=== PATIENT | male | born 1970 | race Caucasian/White ===

== ENCOUNTER 2022-07-03 07:48 | Inpatient (IN) | payer BC, OTHER, SELFPAY ==
[2022-07-03] MEDS ORDERED: hydrALAZINE 20 MG/ML VIAL SLOW IVP PRN (10:35)
[2022-07-03] MEDS ORDERED: Dextrose 5% in Water 1,000 ML IV PRN (10:35)
[2022-07-03] MEDS ORDERED: Promethazine HCl 25 MG/ML VIAL IM PRN (10:35)
[2022-07-03] MEDS ORDERED: Dextrose 50% Abboject 50 ML SYRINGE SLOW IVP PRN (10:35)
[2022-07-03] MEDS ORDERED: Ipratropium/Albuterol 3 ML NEB NEB PRN (10:35)
[2022-07-03 10:54] VITALS: BMI 30.2
[2022-07-03] MEDS: traMADol HCl 50 MG TAB PO PRN ×2 (12:35→20:28)
[2022-07-03] MEDS: D5 1/2 NS w/20 mEq KCL 1,000 ML IV SCH ×3 (12:35→22:30)
[2022-07-03] MEDS ORDERED: Piperacillin/Tazobactam 3.375 GM in Sodium Chloride 0.9% 100 ML IVPB SCH (14:00)
[2022-07-03] MEDS: Acetaminophen 325 MG TAB PO PRN ×2 (14:59→20:27)
[2022-07-03] MEDS: Ondansetron PF 4 MG/2 ML Vial IVP PRN (15:03)
[2022-07-03] MEDS: Famotidine 20 MG TAB PO SCH (20:21)
[2022-07-03] MEDS: Famotidine/PF 20 mg/2ml Vial SLOW IVP SCH (22:31)
[2022-07-04] MEDS: Acetaminophen 325 MG TAB PO PRN (06:00)
[2022-07-04] MEDS: D5 1/2 NS w/20 mEq KCL 1,000 ML IV SCH ×3 (06:02→22:46)
[2022-07-04 06:07] LABS: #Eosinphils 0.2 thou/uL (0.0-0.7); #Lymphocytes 1.4 thou/uL (1.20-3.40); #Monocytes 0.8 thou/uL (0.11-0.59); %Basophils 0.2 % (0.0-1.0); %Eosinophils 2.6 % (0.0-10.0); %Lymphocytes 17.2 % (21.0-51.0); Hemoglobin 14.3 g/dL (14.0-18.0); Mean Corpuscular HGB CONC 34.8 g/dL (32.0-36.0); Mean Corpuscular Hemoglobin 31.4 pg (27.0-31.0); Mean Corpuscular Volume 90.3 fl (78.0-98.0); Mean Platelet Volume 7.5 fL (7.4-10.4); Platelet Count 194 10x3/uL (130-400); RBC Distribution Width 11.8 % (11.5-14.5); Red Blood Cell (RBC) Count 4.54 mill/uL (4.70-6.10); White Blood Cell (WBC) Count 8.4 10x3/uL (4.8-10.8)
[2022-07-04 06:26] LABS: Anion Gap 9 mmol/L (10-20); BUN (Urea Nitrogen) 5 mg/dL (8.4-25.7); Calc. Creatinine Clearance 124 mL/min (70-130); Calcium 8.2 mg/dL (7.8-10.44); Carbon Dioxide 27 mmol/L (22-29); Chloride 106 mmol/L (98-107); Estimated GFR 104; Glucose 128 mg/dL (70-105); Potassium 3.9 mmol/L (3.5-5.1); Sodium 138 mmol/L (136-145)
[2022-07-04] MEDS: Famotidine 20 MG TAB PO SCH ×2 (08:53→21:02)
[2022-07-04] MEDS: Famotidine/PF 20 mg/2ml Vial SLOW IVP SCH ×2 (08:55→21:02)
[2022-07-04] MEDS: traMADol HCl 50 MG TAB PO PRN (11:40)
[2022-07-04] MEDS: Ondansetron PF 4 MG/2 ML Vial IVP PRN ×2 (11:43→18:38)
[2022-07-04] MEDS: Piperacillin/Tazobactam 3.375 GM in Sodium Chloride 0.9% 100 ML IVPB SCH ×2 (13:51→21:02)
[2022-07-04] MEDS: Morphine 4 MG/ML VIAL SLOW IVP PRN (21:06)
[2022-07-05] MEDS: Acetaminophen 325 MG TAB PO PRN ×2 (01:23→13:15)
[2022-07-05] MEDS: Morphine 4 MG/ML VIAL SLOW IVP PRN (04:11)
[2022-07-05] MEDS: Ondansetron PF 4 MG/2 ML Vial IVP PRN ×2 (04:14→13:12)
[2022-07-05] MEDS: Piperacillin/Tazobactam 3.375 GM in Sodium Chloride 0.9% 100 ML IVPB SCH ×3 (05:41→21:24)
[2022-07-05 07:42] LABS: #Eosinphils 0.3 thou/uL (0.0-0.7); #Lymphocytes 1.6 thou/uL (1.20-3.40); #Monocytes 0.5 thou/uL (0.11-0.59); #Neutrophils 5.5 thou/uL (1.40-6.50); %Basophils 0.6 % (0.0-1.0); %Eosinophils 3.9 % (0.0-10.0); %Lymphocytes 19.8 % (21.0-51.0); %Monocytes 6.7 % (0.0-10.0); %Neutrophils 69.1 % (42.0-75.0); Hemoglobin 14.6 g/dL (14.0-18.0); Mean Corpuscular HGB CONC 33.8 g/dL (32.0-36.0); Mean Corpuscular Hemoglobin 30.4 pg (27.0-31.0); Mean Corpuscular Volume 90.1 fl (78.0-98.0); Mean Platelet Volume 7.5 fL (7.4-10.4); Platelet Count 213 10x3/uL (130-400); RBC Distribution Width 11.8 % (11.5-14.5)
[2022-07-05 07:49] LABS: Anion Gap 12 mmol/L (10-20); BUN (Urea Nitrogen) 4 mg/dL (8.4-25.7); Calc. Creatinine Clearance 126 mL/min (70-130); Calcium 8.3 mg/dL (7.8-10.44); Carbon Dioxide 21 mmol/L (22-29); Chloride 108 mmol/L (98-107); Estimated GFR 105; Glucose 94 mg/dL (70-105); Sodium 137 mmol/L (136-145)
[2022-07-05] MEDS: Famotidine 20 MG TAB PO SCH ×2 (09:06→21:25)
[2022-07-05] MEDS: D5 1/2 NS w/20 mEq KCL 1,000 ML IV SCH ×2 (09:08→17:18)
[2022-07-05] MEDS: Famotidine/PF 20 mg/2ml Vial SLOW IVP SCH ×2 (09:08→21:25)
[2022-07-05] MEDS ORDERED: Iopamidol-370 76% 500 ML 1 ML ONE (13:23)
[2022-07-05] MEDS: Melatonin 3 MG TAB PO PRN (22:02)
[2022-07-06] MEDS: D5 1/2 NS w/20 mEq KCL 1,000 ML IV SCH ×3 (03:26→17:38)
[2022-07-06] MEDS: Piperacillin/Tazobactam 3.375 GM in Sodium Chloride 0.9% 100 ML IVPB SCH ×3 (05:00→20:50)
[2022-07-06] MEDS: Famotidine/PF 20 mg/2ml Vial SLOW IVP SCH ×2 (08:19→20:49)
[2022-07-06] MEDS: Famotidine 20 MG TAB PO SCH ×2 (08:20→20:49)
[2022-07-06] MEDS: traMADol HCl 50 MG TAB PO PRN (08:23)
[2022-07-06] MEDS ORDERED: Milk Of Magnesia 30 ML UDCUP PO SCH (09:18)
[2022-07-06] MEDS: Melatonin 3 MG TAB PO PRN (20:49)
[2022-07-07] MEDS: D5 1/2 NS w/20 mEq KCL 1,000 ML IV SCH ×2 (03:52→13:54)
[2022-07-07] MEDS: Piperacillin/Tazobactam 3.375 GM in Sodium Chloride 0.9% 100 ML IVPB SCH ×2 (04:47→14:44)
[2022-07-07] MEDS: Famotidine/PF 20 mg/2ml Vial SLOW IVP SCH (08:24)
[2022-07-07] MEDS: Famotidine 20 MG TAB PO SCH (08:31)
[2022-07-07 13:03] VITALS: BP 130/93; TEMP 98.2
== END 2022-07-07 16:55 | disposition home or self-care (01) | DRG 392 ==
LOC: SURG B 09:44
PROVIDERS: ADMIT Surgery; ATTEND Surgery
DX: K57.20 Diverticulitis of large intestine with perforation and abscess without bleeding (principal)
CPT/HCPCS: 36415; 74177; 80048; 85025; J1650; J2270; J2405; J2543; J3480; J3490; Q9967; S0028

== ENCOUNTER 2022-08-08 13:48 | Outpatient (CLI) | payer BC ==
[~2022-08-08 13:48] MED LIST: Iopamidol 370 76% 100 ML VIAL ONE
== END 2022-08-08 13:49 | disposition home or self-care (01) ==
LOC: BICCT 13:48
PROVIDERS: ATTEND Student in an Organized Health Care Education/Training Program
DX: K57.92 Diverticulitis of intestine, part unspecified, without perforation or abscess without bleeding (principal); K46.9 Unspecified abdominal hernia without obstruction or gangrene
CPT/HCPCS: 74177